=== PATIENT | female | born 1985 | race Caucasian/White ===

== ENCOUNTER 2022-06-07 23:12 | Emergency (ER) | payer OTHER ==
[~2022-06-07] VITALS: Ht 162.6 cm; Wt 63.5 kg
[2022-06-07 23:12] VITALS: BP 115/71
[2022-06-07 23:15] VITALS: BP 115/71
--- NOTE | 2022-06-07 23:20 | NUR ---
PT BIBA BLS ER BED 7
--- NOTE | 2022-06-07 23:38 | NUR ---
38YR OLD FEMALE BIB EMS C/O ANXIETY. PT DENIES CP OR SOB. A&OX4. ON BEDSIDE MONITOR. HOB ELEVATED. SKIN WARM AND DRY RESP EVEN AND UNLABORED. NKDA ANXIETY
--- NOTE | 2022-06-08 00:03 | NUR ---
Chart checked and completed.
--- NOTE | 2022-06-08 00:03 | NUR ---
Patient discharged with v/s stable. Written and verbal after care instructions given and explained. Patient verbalized understanding. Ambulatory with steady gait. All questions addressed prior to discharge. Advised to follow up with PMD.
== END 2022-06-08 00:03 | disposition home or self-care (01) ==
LOC: MED 23:12
DX: F41.0 Panic disorder [episodic paroxysmal anxiety] (principal); F32.A Depression, unspecified; Z79.899 Other long term (current) drug therapy
CPT/HCPCS: 99283